=== PATIENT | male | born 1935 | race Caucasian/White ===

== ENCOUNTER → 2017-03-26 | Outpatient (CLI) | payer OTHER, BC ==
[~2017-03-26] MED LIST: ASPIRIN325 PO; ASPIRIN81 M2 PO; ATORVASTATIN CA40 MG PO; CLOPIDOGREL75 MG PO; IMDUR 30 MG TAB30 M1 PO; LEVOXYL100 MCG PO; PRENATAL PO; RANEXA500 MG PO; TOPROL XL25 MG PO; UNICOMPLEX M TA1 TA1 PO; ZOCOR40 MG PO
== END ==
LOC: PUL 09:34
DX: R06.09 Other forms of dyspnea (principal)

== ENCOUNTER → 2018-05-29 | Outpatient (CLI) | payer OTHER, BC ==
[~2018-05-29] VITALS: Ht 167.6 cm; Wt 58.1 kg
[~2018-05-29] MED LIST changes: +ASPIR 8181 MG PO
--- NOTE | ~2018-05-29 | CATHLAB ---
[facility] [place] [address] INVASIVE PROCEDURE REPORT Name: KIRBY MILLER [id number] Admission: 05/29/18 Attend Phys: Madhu Camarillo, Discharge: Date of : 37 Date of Service: 06/01/18 1208 Report #: [id number] THIS REPORT FOR: //name// APPROVED REPORT Study performed: 05/29/2018 09:03:00 Patient Details Patient Status: In-Patient Room #: The patient is a 83 year-old male Event Personnel Madhu Camarillo Electric Dolly Operator, Juancarlos Awad RN, Gabbi Monge RTR, LUC Gomez, [place] Monitor, Wilfrido Sanchez RN Sand Screener Procedures Performed Left Heart Cath w/or w/o Coronaries [id number] [facility] Abdominal Aortography [id number] Indication Chest pain Procedure Narrative The Right Groin^ was infiltrated with 1% Lidocaine subcutaneous anesthesia. A PINNACLE 6FR Sheath #[id number] sheath was inserted into the RFA^. Coronary angiography was performed using coronary diagnostic catheters. The right coronary system was accessed and visualized with a jr4 catheter. The left coronary system was accessed and visualized with a jl4 catheter. The left ventricle was accessed and visualized with a pigtail catheter. Left ventriculogram was performed in 30 degree projection. An aortogram of the abdominal aorta was performed. Closure device was deployed with a 6 Fr MYNXGRIP 6/7F #[id number]. The patient tolerated the procedure well and there were no complications associated with the procedure. There was no hematoma. Intraoperative Conscious Sedation Sedation start time: 9.29 Case end Time: 9.48 Fentanyl 50 mcg Versed 1 mg Fluoro Time: 214.00 minutes Dose: DAP 2143 cGycm2 238 mGy Contrast Type and Amount: Omnipaque 110 ml [facility] [place] [address] INVASIVE PROCEDURE REPORT Name: ANGELAKIRBY Room #: [facility]#: [id number] Admission: 05/29/18 Attend Phys: Madhu Camarillo, Discharge: Date of : 37 Date of Service: 06/01/18 1208 Report #: [id number] Hemodynamics The aortic pressure is 147/67 mmHg with a mean of 103 mmHg. The left ventricular pressure is 151/15 mmHg with a mean of mmHg. The left ventricular end diastolic pressure is 22 mmHg. 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 There is mild disease both proximal and distal to the stent this LAD extends around the apex #4 circumflex OM is nondominant with mild irregularity. #5 dominant right coronary with an eccentric 3040% distal lesion giving rise to PDA and YESSICA. Recommendations and plan: Continue aggressive risk factor modification no indication for coronary intervention. LAD stent remains widely patent. Minimal progression of disease otherwise noted. <ELECTRONICALLY SIGNED> By: Madhu Camarillo MD, [facility] 06/01/18 1208 07 07 Madhu Camarillo MD, FACC /INF
[2018-05-29 08:02] VITALS: BP 172/82
[2018-05-29 08:24] LABS: HEMATOCRIT 39.4 % (42.0-52.0); HEMOGLOBIN 13.3 gm/dL (14.0-18.0); MCH 33.7 pg (26.0-34.0); MCHC 33.8 g/dL (28.0-37.0); MCV 99.6 fL (80.0-100.0); RBC 3.95 mil/uL (4.50-6.00); RDW 13.2 % (10.5-14.5); WBC 5.4 thou/uL (4.0-11.0)
[2018-05-29 08:33] LABS: POTASSIUM 3.9 mmol/L (3.5-5.1)
== END | disposition short-term general hospital (02) ==
LOC: CATH 07:38
PROVIDERS: Internal Medicine Cardiovascular Disease
DX: I25.10 Atherosclerotic heart disease of native coronary artery without angina pectoris (principal); I70.1 Atherosclerosis of renal artery; I10 Essential (primary) hypertension; E89.0 Postprocedural hypothyroidism; C44.90 Unspecified malignant neoplasm of skin, unspecified; E78.00 Pure hypercholesterolemia, unspecified; I35.1 Nonrheumatic aortic (valve) insufficiency; Z82.49 Family history of ischemic heart disease and other diseases of the circulatory system; Z98.890 Other specified postprocedural states; Z79.82 Long term (current) use of aspirin; Z79.899 Other long term (current) drug therapy; Z90.89 Acquired absence of other organs; Z85.828 Personal history of other malignant neoplasm of skin

== ENCOUNTER → 2020-05-03 | Outpatient (CLI) | payer OTHER, BC | LOC: SJCVCIMAG 12:39 → SJCVC 12:39 | PROVIDERS: ATTEND Internal Medicine Cardiovascular Disease | DX: I65.21 Occlusion and stenosis of right carotid artery (principal); I25.10 Atherosclerotic heart disease of native coronary artery without angina pectoris; E78.00 Pure hypercholesterolemia, unspecified; I10 Essential (primary) hypertension; E03.9 Hypothyroidism, unspecified; J43.9 Emphysema, unspecified ==

== ENCOUNTER → 2020-05-18 | Outpatient (CLI) | payer OTHER, BC | LOC: SJCVCIMAG 12:46 | PROVIDERS: ATTEND Internal Medicine Cardiovascular Disease | DX: I08.3 Combined rheumatic disorders of mitral, aortic and tricuspid valves (principal); I25.10 Atherosclerotic heart disease of native coronary artery without angina pectoris; E78.00 Pure hypercholesterolemia, unspecified; I10 Essential (primary) hypertension; Z95.5 Presence of coronary angioplasty implant and graft ==

== ENCOUNTER → 2021-11-21 | Outpatient (CLI) | payer OTHER, BC | LOC: SJCVC 13:57 | PROVIDERS: ATTEND Internal Medicine Cardiovascular Disease | DX: I25.10 Atherosclerotic heart disease of native coronary artery without angina pectoris (principal); I10 Essential (primary) hypertension; E78.00 Pure hypercholesterolemia, unspecified; R00.1 Bradycardia, unspecified; Z95.5 Presence of coronary angioplasty implant and graft; J43.9 Emphysema, unspecified; E03.9 Hypothyroidism, unspecified; Z98.890 Other specified postprocedural states; Z79.82 Long term (current) use of aspirin; Z79.899 Other long term (current) drug therapy ==